=== PATIENT | female | born 1970 | race Caucasian/White ===

== ENCOUNTER 2016-07-29 16:24 | Emergency (ER) | payer OTHER ==
[2016-07-29] MEDS ORDERED: ASPIRIN CHEWTAB 81 MG TABLET ONE (17:18)
[2016-07-29 17:53] LABS: ALB/GLOB RATIO 1.3 (>1.0); ALBUMIN 4.2 gm/dL (3.5-5.7); CALCIUM 9.7 mg/dL (8.6-10.3)
[2016-07-29 17:55] LABS: TROPONIN I < 0.01 ng/ml (0.0-0.06)
[2016-07-29 17:57] LABS: ABSOLUTE NEUTROPHIL COUNT 5.5 K/mm3 (1.8-7.7); BASO # 0.1 K/mm3 (0.0-0.2); BASO % 0.9 % (0.2-1.0); EOS # 0.2 (0.0-0.5); EOS % 2.2 % (0.9-2.9); HEMOGLOBIN 12.9 gm/l (12.0-16.0); IMM NEUT # 0.1 K/mm3 (0-0.2); IMM NEUT% 0.5 % (0-1); LYMPH # 2.9 (1.0-4.8); LYMPH % 31.5 % (15-45); MEAN CELL VOLUME 88.4 fl (81.0-99.0); MEAN CORPUSCULAR HEMOGLOBIN 29.3 pg (27.0-31.0); MEAN CORPUSCULAR HGB CONC 33.1 g/dl (33.0-37.0); MEAN PLATELET VOLUME 11.7 fl (7.4-10.4); MONO # 0.6 (0.0-0.8); NEUT % 58.9 % (43-75); PLATELET COUNT 250 K/mm3 (130-400); RED CELL DISTRIBUTION WIDTH 12.9 % (11.5-14.5)
[2016-07-29 17:58] LABS: CKMB ISOENZYME 1.5 ng/ml (0.6-6.3)
[2016-07-29 18:04] LABS: THYROID STIMULATING HORMONE 1.18 uIU/ml (0.34-5.60)
--- NOTE | 2016-07-29 18:10 | RAD ---
CHEST - 2 VIEWS COMPARISON: None. HISTORY: Chest pain for one hour. FINDINGS: Views: Frontal and lateral chest Lungs: Normal Heart and vessels: Normal Trachea and bronchi: Normal Mediastinum and sigifredo: Normal Costophrenic sulci: Normal Chest wall and bones: Normal. Upper abdomen: Normal. IMPRESSION: Negative 2 view chest.
== END 2016-07-29 18:59 | disposition home or self-care (01) ==
LOC: ED 16:24
DX: R00.2 Palpitations (principal); F17.210 Nicotine dependence, cigarettes, uncomplicated; Z88.0 Allergy status to penicillin
CPT/HCPCS: 85379; 85025; 82553; 80053; 84443; 84484; 71020; 99283 ×2; 93226; 93225; 93270; 93005; A9270